=== PATIENT | male | born 1950 | race Caucasian/White ===

== ENCOUNTER → 2020-05-26 | Outpatient (CLI) | payer MEDICARE, OTHER ==
[~2020-05-26] MED LIST: ALLO300 PO; Glucophage 850850 MG PO; Prinivil10 MG PO; VERA80 PO
[2020-06-03 16:09] LABS: COTININE <10.0 ng/mL (.); NICOTINE <10.0 ng/mL (.)
== END | disposition home or self-care (01) ==
LOC: LAB 13:51 → LAB SHORT 13:51
PROVIDERS: Internal Medicine Interventional Cardiology
DX: Z72.0 Tobacco use (principal)
CPT/HCPCS: G0480